=== PATIENT | male | born 1970 | race Caucasian/White ===

== ENCOUNTER 2017-06-07 09:08 | Outpatient (CLI) | payer OTHER | END 2017-06-07 09:09 | disposition home or self-care (01) | LOC: BICMRI 09:08 | PROVIDERS: ATTEND Nurse Practitioner Family | DX: S63.601D Unspecified sprain of right thumb, subsequent encounter (principal); M65.9 Synovitis and tenosynovitis, unspecified; S56.01 Strain of flexor muscle, fascia and tendon of thumb at forearm level; M18.9 Osteoarthritis of first carpometacarpal joint, unspecified; M19.041 Primary osteoarthritis, right hand ==

== ENCOUNTER 2017-11-27 07:57 | Outpatient (CLI) | payer OTHER ==
[2017-11-27 10:10] LABS: #Eosinphils 0.1 thou/uL (0.0-0.7); #Lymphocytes 1.4 thou/uL (1.20-3.40); #Monocytes 0.6 thou/uL (0.11-0.59); #Neutrophils 3.9 thou/uL (1.40-6.50); %Basophils 0.4 % (0.0-1.0); %Eosinophils 1.9 % (0.0-10.0); %Lymphocytes 23.9 % (21.0-51.0); %Monocytes 9.3 % (0.0-10.0); %Neutrophils 64.4 % (42.0-75.0); Hemoglobin 16.4 g/dL (14.0-18.0); Mean Corpuscular Hemoglobin 32.9 pg (27.0-31.0); Mean Platelet Volume 7.5 fL (7.4-10.4); Platelet Count 278 thou/uL (130-400); RBC Distribution Width 11.8 % (11.5-14.5); Red Blood Cell (RBC) Count 4.99 mill/uL (4.70-6.10)
[2017-11-27 10:20] LABS: Anion Gap 12 mmol/L (10-20); BUN (Urea Nitrogen) 15 mg/dL (8.9-20.6); Calc. Creatinine Clearance 0 mL/min (70-130); Calcium 9.8 mg/dL (7.8-10.44); Carbon Dioxide 24 mmol/L (22-29); Chloride 107 mmol/L (98-107); Estimated GFR-MDRD 78; Glucose 104 mg/dL (70-105); Potassium 4.1 mmol/L (3.5-5.1); Sodium 139 mmol/L (136-145)
== END 2017-11-27 07:58 | disposition home or self-care (01) ==
LOC: LABBT 07:57
PROVIDERS: ATTEND Orthopaedic Surgery Hand Surgery
DX: Z01.818 Encounter for other preprocedural examination (principal); M65.841 Other synovitis and tenosynovitis, right hand; M18.11 Unilateral primary osteoarthritis of first carpometacarpal joint, right hand
CPT/HCPCS: 80048; 85025; 93005; 93010

== ENCOUNTER 2017-12-04 07:33 | Day surgery (SDC) | payer OTHER ==
[2017-11-27 08:34] VITALS: BMI 34.2
[2017-12-04] MEDS ORDERED: Sodium Chloride 0.9% 10 ML ONE (08:13)
[2017-12-04] MEDS ORDERED: Betamet Acet/Betamet Na Ph 30 MG/5 ML VIAL ONE (08:13)
[2017-12-04] MEDS ORDERED: Bacitracin Zinc Ointment 30 gm TUBE ONE (08:13)
[2017-12-04] MEDS ORDERED: Bupivacaine PF 0.5% 30 ML VIAL ONE (08:13)
[2017-12-04] MEDS ORDERED: Midazolam HCl 2 mg/2 ml Vial ONE (08:23)
[2017-12-04] MEDS ORDERED: CEFAZOLIN/Water 2 GM/20 ML SYRINGE ONE (08:23)
[2017-12-04] MEDS ORDERED: Fentanyl 100 MCG/2 ML VIAL ONE (08:26)
[2017-12-04] MEDS ORDERED: Ondansetron HCl/PF 4 MG/2 ML Vial ONE (12:44)
[2017-12-04] MEDS ORDERED: Lidocaine 1% PF 5 ML VIAL ONE (12:44)
[2017-12-04] MEDS ORDERED: PROPOFOL 200 MG/20 ML VIAL ONE (12:44)
[2017-12-04] MEDS ORDERED: Dexamethasone 20 MG/5 ML VIAL ONE (12:44)
[2017-12-04] MEDS ORDERED: Ketorolac Tromethamine 30 MG/ML VIAL ONE (12:44)
--- NOTE | 2017-12-04 14:13 | RAD ---
RIGHT HAND 3 VIEWS: Date: 12/04/17 HISTORY: Injection. COMPARISON: None. FINDINGS: Two spot radiographs were presented. There appears to be a needle projecting over the thumb carpometa carpal joint. IMPRESSION: Needle projecting over the thumb carpometacarpal joint. POS: [facility]
--- NOTE | 2017-12-04 16:59 | OP ---
DATE OF SURGERY: 12/04/2017 POSTOPERATIVE DIAGNOSES: 1. Right thumb A1 dane tenosynovitis. 2. Right thumb flexor pollicis longus tenosynovitis, confirmed by exam and MRI. 3. Carpometacarpal joint mild osteoarthritis, all right side. POSTOPERATIVE DIAGNOSES: 1. Right thumb A1 dane tenosynovitis. 2. Right thumb flexor pollicis longus tenosynovitis, confirmed by exam and MRI. 3. Carpometacarpal joint mild osteoarthritis, all right side. FINDINGS: Flexor pollicis longus tenosynovitis beginning just distal to the A1 dane between A1 pul elizabeth and a very thick band, almost 1 centimeter long, proximal to the A1 with fibrotic change. PROCEDURE PERFORMED: 1. Radical flexor tenosynovectomy of the flexor pollicis longus of the right thumb. 2. Right thumb A1 dane release. 3. Right thumb carpometacarpal joint injection. 4. C-arm supervision intraoperative. TOURNIQUET TIME: 50 minutes. BLOOD LOSS: 5 mL. FINDINGS: As listed above. INDICATION: The patient had work injury. Had pain along the flexor tendon, especially with flexion. There was intermittent popping at the interphalangeal joint, without interphalangeal joint clinical changes. Failed conservative treatments include injections. The MRI confirmed the tenosynovitis ju st proximal to A1 dane. DESCRIPTION OF PROCEDURE: After successful general LMA technique, the limb was prepped and draped. We then outlined an incision zigzag centered on the A1 dane mass, 1 cm distal and 1.5 cm proximal. A zigzag fashion was carried through skin, subcutaneous tissue after exsanguination of the limb and inflation of tourniquet to 250 mmHg pressure. We immediately found the 2 nerve branches protected th em, there was marked synovial changes as described above. We immediately dissected protecting the nerves at 0.2 cm proximal to the A1 dane and began to release the fibrotic band at this point a ll the way up to the A1 dane and the underlying tenosynovium. The tenosynovitis was that of specif ic area of 5-6 mm incised where the tendon was very thick. This was just at the A1 dane. The A1 p ulley was released. A 1.5-mm section was removed to prevent recurrence. The oblique tendon was spar ed and we finished a tenosynovectomy up to this level. We flexed and extended the tendon to make lashon e there was no further area. The nerves were intact. We placed 3 mL of Celestone in this area, rele ased the tourniquet and obtained hemostasis. The C-arm was brought into the field, confirmed that we had a needle placed into the joint in the fro ntal and sagittal plane of the carpometacarpal joint of this ipsilateral right thumb. We then inject ed 1 mL of Marcaine and 1 of Celestone into the joint. There was excellent joint fill. Removed the needle. C-arm was removed. We repaired and closed the wound with interrupted 4-0 nylon in a simple pattern and finished a total of 10 mL 0.5% Marcaine. Incisional block and the patient left the opera ting room with the digits pink. No evidence of anesthetic or operative complications.
== END 2017-12-04 11:08 | disposition home or self-care (01) ==
LOC: SDC 07:33
PROVIDERS: ATTEND Orthopaedic Surgery Hand Surgery
PROC: 3E0U33Z Introduction of Anti-inflammatory into Joints, Percutaneous Approach (ICD-10-PCS; principal; 2017-12-04)
PROC: 0LB70ZZ Excision of Right Hand Tendon, Open Approach (ICD-10-PCS; principal; 2017-12-04)
PROC: 3E0U3BZ Introduction of Anesthetic Agent into Joints, Percutaneous Approach (ICD-10-PCS; principal; 2017-12-04)
DX: M18.11 Unilateral primary osteoarthritis of first carpometacarpal joint, right hand (principal); M65.841 Other synovitis and tenosynovitis, right hand; G89.29 Other chronic pain; M54.9 Dorsalgia, unspecified; I10 Essential (primary) hypertension; Z87.891 Personal history of nicotine dependence; Z79.82 Long term (current) use of aspirin; Z79.899 Other long term (current) drug therapy
CPT/HCPCS: 76000; A4216; J0702; J1100; J1885; J2001; J2250; J2405; J2704; J3010; J3490; S0020

== ENCOUNTER 2025-02-09 14:07 | Outpatient (CLI) | payer BC ==
[~2025-02-09 14:07] MED LIST: Iopamidol 370 76% 100 ML VIAL ONE
== END 2025-02-09 14:08 | disposition home or self-care (01) ==
LOC: CT 14:07
PROVIDERS: ATTEND Specialist
DX: R10.9 Unspecified abdominal pain (principal)
CPT/HCPCS: 74177; Q9967